=== PATIENT | male | born 1980 | race Two or more races ===

== ENCOUNTER 2017-11-13 11:24 | Emergency (ER) | payer BC, OTHER | END 2017-11-13 13:39 | disposition home or self-care (01) | LOC: ER 11:24 | DX: S93.402A Sprain of unspecified ligament of left ankle, initial encounter (principal); S93.602A Unspecified sprain of left foot, initial encounter; E11.9 Type 2 diabetes mellitus without complications; Z90.49 Acquired absence of other specified parts of digestive tract; X58.XXXA Exposure to other specified factors, initial encounter; Y93.89 Activity, other specified; Y92.89 Other specified places as the place of occurrence of the external cause; Y99.8 Other external cause status | CPT/HCPCS: 29515; 73610; 73630; 99284-25 ==